=== PATIENT | female | born 1955 | race Asian ===

== ENCOUNTER 2019-09-05 09:54 | Inpatient (IN) | payer MEDICARE, MEDICAID ==
[~2019-09-05] VITALS: Ht 154.9 cm; Wt 108.0 kg
[2019-09-05] MEDS ORDERED: MORPHINE SULFATE 4 MG/ML CPJ (NOT FOR IM USE) IV STA (10:35)
[2019-09-05] MEDS ORDERED: ONDANSETRON HCL 4MG/2ML INJ IV STA (10:35)
[2019-09-05 12:28] LABS: HEMATOCRIT. 32.6 % (36.0-48.0); MEAN CORPUSCULAR HEMOGLOBIN 33.2 pg (28.0-32.0); MEAN CORPUSCULAR VOLUME 98.5 fL (81.0-99.0); MEAN PLATELET VOLUME 7.2 fl (7.4-10.4); PLATELET 319 x1000/uL (130-400); RED BLOOD CELL COUNT 3.31 mill/uL (4.2-5.4); RED CELL DISTRIBUTION WIDTH 16.3 % (11.6-14.6)
[2019-09-05] MEDS ORDERED: HYDROCODONE/ACETAMINOPHEN 5/325MG TABLET PO ONE (12:30)
[2019-09-05 12:31] LABS: CHLORIDE 92 mEq/L (98-107)
[2019-09-05 12:33] LABS: D-DIMER 3.36 mg/L FEU (<0.50); INR 1.1; PROTHROMBIN TIME 12.3 sec (9.6-11.0)
[2019-09-05 12:58] LABS: PLATELET ESTIMATE NORMAL
[2019-09-05] MEDS ORDERED: SODIUM CHLORIDE 0.9% 1,000 ML IV ONE (14:58)
[2019-09-05] MEDS ORDERED: VANCOMYCIN 1 G PREMIX 200 ML IV ONE (15:00)
[2019-09-05] MEDS ORDERED: PIPERACILLIN/TAZ 3.375G PREMIX 50 ML IV ONE (15:00)
[2019-09-05] MEDS ORDERED: CLONIDINE 0.1MG TABLET PO PRN (15:15)
[2019-09-05] MEDS ORDERED: ENOXAPARIN 40MG/0.4ML SYR SUBCUT SCH (15:15)
[2019-09-05] MEDS ORDERED: LORAZEPAM 0.5MG TABLET PO PRN (15:15)
[2019-09-05] MEDS ORDERED: MAGNESIUM/ALUMINUM HYDROXIDE/SIMETHICONE 30ML UDC PO PRN (15:15)
[2019-09-05] MEDS ORDERED: DOCUSATE SODIUM 100MG CAPSULE PO PRN (15:15)
[2019-09-05] MEDS ORDERED: NITROGLYCERIN 0.4MG TABLET SL SL PRN (15:15)
[2019-09-05] MEDS ORDERED: IPRATROPIUM/ALBUTEROL 0.5-3(2.5)MG/3ML NEB NEB PRN (15:15)
[2019-09-05] MEDS ORDERED: ACETAMINOPHEN 325MG TABLET PO PRN (15:15)
[2019-09-05] MEDS ORDERED: DIPHENHYDRAMINE 50MG/ML VIAL IV PRN (15:15)
[2019-09-05] MEDS ORDERED: GUAIFENESIN 200MG/10ML SUGAR FREE UDC PO PRN (15:15)
[2019-09-05 19:00] VITALS: BP 108/74
[2019-09-05 20:00] VITALS: BP 100/64
[2019-09-05] MEDS ORDERED: LOSA1TAB40 MT (20:00)
[2019-09-05] MEDS ORDERED: ASPI-986 MT (20:00)
[2019-09-05] MEDS ORDERED: ENOXAPARIN 30MG/0.3ML SYR SUBCUT SCH (20:00)
[2019-09-05] MEDS ORDERED: ZOLPIDEM TARTRATE 5MG TABLET PO PRN (21:00)
[2019-09-05] MEDS ORDERED: PIPERACILLIN/TAZ 3.375G PREMIX 50 ML IV SCH (21:00)
[2019-09-05] MEDS: PIPERACILLIN/TAZOBACTAM 3.375 G in DEXT 5% WATER 100 ML IV SCH (21:38)
[2019-09-05] MEDS: SEVELAMER CARBONATE 800 MG TABLET PO SCH (21:40)
[2019-09-05] MEDS: METOPROLOL TARTRATE 25MG TABLET PO SCH (21:41)
[2019-09-05] MEDS: FAMOTIDINE 20MG TABLET PO SCH (21:41)
[2019-09-05] MEDS: ASCORBIC ACID 500 MG TABLET PO SCH (21:45)
[2019-09-05] MEDS ORDERED: VANCOMYCIN 750 MG PREMIX 150 ML IV NR (22:00)
[2019-09-06] VITALS: BP 115/66
[2019-09-06 00:04] LABS: CREATINE KINASE 168 IU/L (26-192)
[2019-09-06 00:06] LABS: CREATINE KINASE MB FRACTION 2.8 ng/mL (0.5-3.6)
[2019-09-06 04:00] VITALS: BP 121/71
[2019-09-06] MEDS: TRAMADOL 50MG TABLET PO PRN (05:55)
[2019-09-06] MEDS: SEVELAMER CARBONATE 800 MG TABLET PO SCH ×3 (06:36→17:46)
[2019-09-06 07:56] LABS: CREATINE KINASE 131 IU/L (26-192); CREATINE KINASE MB FRACTION 2.5 ng/mL (0.5-3.6)
[2019-09-06 08:00] VITALS: BP 112/70
[2019-09-06] MEDS: ASCORBIC ACID 500 MG TABLET PO SCH ×2 (08:47→21:21)
[2019-09-06] MEDS: METOPROLOL TARTRATE 25MG TABLET PO SCH ×2 (08:47→21:21)
[2019-09-06] MEDS: PIPERACILLIN/TAZOBACTAM 3.375 G in DEXT 5% WATER 100 ML IV SCH ×2 (08:47→23:35)
[2019-09-06] MEDS: ASPIRIN 325MG EC TABLET PO SCH (08:47)
[2019-09-06 11:24] LABS: CREATINE KINASE 124 IU/L (26-192)
[2019-09-06 12:00] VITALS: BP 119/66
[2019-09-06 16:00] VITALS: BP 119/72
[2019-09-06] MEDS ORDERED: VANCOMYCIN 750 MG PREMIX 150 ML IV NR (18:00)
[2019-09-06 20:00] VITALS: BP 127/78
[2019-09-06] MEDS: ENOXAPARIN 40MG/0.4ML SYR SUBCUT SCH (21:20)
[2019-09-06] MEDS: FAMOTIDINE 20MG TABLET PO SCH (21:20)
[2019-09-07] VITALS (7 sets, daily range): BP systolic 120–144; BP diastolic 71–78
[2019-09-07 07:44] LABS: HEMATOCRIT. 31.3 % (36.0-48.0); HEMOGLOBIN. 10.5 g/dL (12.0-16.0); MEAN CORPUSCULAR HEMOGLOBIN 33.1 pg (28.0-32.0); MEAN CORPUSCULAR VOLUME 98.4 fL (81.0-99.0); MEAN PLATELET VOLUME 7.6 fl (7.4-10.4); PLATELET 311 x1000/uL (130-400); RED BLOOD CELL COUNT 3.18 mill/uL (4.2-5.4); RED CELL DISTRIBUTION WIDTH 16.9 % (11.6-14.6)
[2019-09-07 08:07] LABS: PHOSPHORUS 6.1 mg/dL (2.5-4.9)
[2019-09-07] MEDS: METOPROLOL TARTRATE 25MG TABLET PO SCH ×2 (08:53→21:07)
[2019-09-07] MEDS: SEVELAMER CARBONATE 800 MG TABLET PO SCH ×3 (08:53→18:03)
[2019-09-07] MEDS: ASPIRIN 325MG EC TABLET PO SCH (08:54)
[2019-09-07] MEDS: ASCORBIC ACID 500 MG TABLET PO SCH ×2 (08:55→21:01)
[2019-09-07] MEDS: PIPERACILLIN/TAZOBACTAM 3.375 G in DEXT 5% WATER 100 ML IV SCH (08:55)
[2019-09-07] MEDS: TRAMADOL 50MG TABLET PO PRN ×3 (08:56→23:41)
[2019-09-07 10:22] LABS: PLATELET ESTIMATE NORMAL
[2019-09-07] MEDS: ENOXAPARIN 40MG/0.4ML SYR SUBCUT SCH (21:01)
[2019-09-07] MEDS: FAMOTIDINE 20MG TABLET PO SCH (21:01)
[2019-09-08] VITALS: BP 130/65
[2019-09-08 04:00] VITALS: BP 137/65
[2019-09-08 06:15] LABS: BASOPHILS % 0.7 % (0.0-2.0); EOSINOPHILS % 0.3 % (0.0-5.0); HEMATOCRIT. 29.4 % (36.0-48.0); HEMOGLOBIN. 9.8 g/dL (12.0-16.0); MEAN CORPUSCULAR HEMOGLOBIN 32.9 pg (28.0-32.0); MEAN CORPUSCULAR VOLUME 98.3 fL (81.0-99.0); MEAN PLATELET VOLUME 7.7 fl (7.4-10.4); MONOCYTES % 13.1 % (2.0-8.0); NEUTROPHILS % 73.9 % (40.0-76.0); PLATELET 326 x1000/uL (130-400); RED BLOOD CELL COUNT 2.99 mill/uL (4.2-5.4); RED CELL DISTRIBUTION WIDTH 17.1 % (11.6-14.6)
[2019-09-08 07:06] LABS: PHOSPHORUS 6.2 mg/dL (2.5-4.9)
[2019-09-08 08:00] VITALS: BP 131/81
[2019-09-08] MEDS: SEVELAMER CARBONATE 800 MG TABLET PO SCH ×3 (08:42→18:12)
[2019-09-08] MEDS: METOPROLOL TARTRATE 25MG TABLET PO SCH ×3 (09:00→20:45)
[2019-09-08] MEDS: ASCORBIC ACID 500 MG TABLET PO SCH ×2 (09:31→20:45)
[2019-09-08 11:56] VITALS: BP 110/68
[2019-09-08] MEDS: LORAZEPAM 2MG/ML CPJ IV PRN (12:44)
[2019-09-08] MEDS: MORPHINE SULFATE 2 MG/ML CPJ (NOT FOR IM USE) IV PRN (14:14)
[2019-09-08 16:34] VITALS: BP 148/78
[2019-09-08] MEDS: CEFAZOLIN 2,000 MG in DEXT 5% WATER 100 ML IV SCH (18:29)
[2019-09-08] MEDS: ENOXAPARIN 40MG/0.4ML SYR SUBCUT SCH (20:00)
[2019-09-08 20:44] VITALS: BP 168/82
[2019-09-08] MEDS: QUETIAPINE FUMARATE 50MG TABLET PO SCH (20:44)
[2019-09-08] MEDS: OXCARBAZEPINE 300MG TABLET PO SCH (20:45)
[2019-09-08] MEDS: FAMOTIDINE 20MG TABLET PO SCH (20:45)
[2019-09-08] MEDS ORDERED: QUETIAPINE FUMARATE 50MG TABLET PO SCH (21:00)
[2019-09-09 00:20] VITALS: BP 133/79
[2019-09-09 04:00] VITALS: BP 141/82
[2019-09-09 05:55] LABS: BASOPHILS % 0.5 % (0.0-2.0); EOSINOPHILS % 0.3 % (0.0-5.0); HEMATOCRIT. 30.5 % (36.0-48.0); HEMOGLOBIN. 10.3 g/dL (12.0-16.0); MEAN CORPUSCULAR VOLUME 98.1 fL (81.0-99.0); MEAN PLATELET VOLUME 7.5 fl (7.4-10.4); MONOCYTES % 10.2 % (2.0-8.0); PLATELET 320 x1000/uL (130-400); RED BLOOD CELL COUNT 3.11 mill/uL (4.2-5.4)
[2019-09-09 07:41] LABS: PHOSPHORUS 6.6 mg/dL (2.5-4.9)
[2019-09-09 08:00] VITALS: BP 153/77
[2019-09-09] MEDS: SEVELAMER CARBONATE 800 MG TABLET PO SCH ×3 (08:24→17:23)
[2019-09-09] MEDS: ASPIRIN 325MG EC TABLET PO SCH (08:24)
[2019-09-09] MEDS: ASCORBIC ACID 500 MG TABLET PO SCH ×2 (08:24→21:30)
[2019-09-09] MEDS: METOPROLOL TARTRATE 25MG TABLET PO SCH ×2 (08:25→21:00)
[2019-09-09 12:01] VITALS: BP 155/75
[2019-09-09 15:55] VITALS: BP 175/88
[2019-09-09] MEDS: CEFAZOLIN 2,000 MG in DEXT 5% WATER 100 ML IV SCH (17:23)
[2019-09-09] MEDS: MORPHINE SULFATE 2 MG/ML CPJ (NOT FOR IM USE) IV PRN (18:51)
[2019-09-09] MEDS: ENOXAPARIN 40MG/0.4ML SYR SUBCUT SCH (20:00)
[2019-09-09 20:12] VITALS: BP 145/74
[2019-09-09] MEDS: FAMOTIDINE 20MG TABLET PO SCH (21:30)
[2019-09-09] MEDS: OXCARBAZEPINE 300MG TABLET PO SCH (21:30)
[2019-09-09] MEDS: QUETIAPINE FUMARATE 50MG TABLET PO SCH (21:30)
[2019-09-10 00:08] VITALS: BP 138/77
[2019-09-10 04:00] VITALS: BP 134/68
[2019-09-10 07:28] LABS: HEMATOCRIT. 34.6 % (36.0-48.0); HEMOGLOBIN. 11.6 g/dL (12.0-16.0); MEAN CORPUSCULAR HEMOGLOBIN 32.9 pg (28.0-32.0); MEAN PLATELET VOLUME 7.7 fl (7.4-10.4); PLATELET 341 x1000/uL (130-400); RED BLOOD CELL COUNT 3.53 mill/uL (4.2-5.4); RED CELL DISTRIBUTION WIDTH 16.6 % (11.6-14.6)
[2019-09-10] MEDS: SEVELAMER CARBONATE 800 MG TABLET PO SCH ×3 (07:50→18:53)
[2019-09-10 08:00] VITALS: BP 141/72
[2019-09-10 08:05] LABS: PHOSPHORUS 6.3 mg/dL (2.5-4.9)
[2019-09-10] MEDS: ASCORBIC ACID 500 MG TABLET PO SCH ×2 (09:00→21:38)
[2019-09-10] MEDS: METOPROLOL TARTRATE 25MG TABLET PO SCH ×2 (09:00→21:36)
[2019-09-10] MEDS: ASPIRIN 325MG EC TABLET PO SCH (09:00)
[2019-09-10 09:38] LABS: PLATELET ESTIMATE NORMAL
[2019-09-10] MEDS ORDERED: BACITRACIN 15GM TUBE TOP ONE (10:52)
[2019-09-10] MEDS ORDERED: BACITRACIN 50,000 UNITS/VIAL ONE (10:53)
[2019-09-10] MEDS ORDERED: LIDOCAINE HCL 1% 20ML VIAL (Pyxis) INJ ONE (10:53)
[2019-09-10] MEDS ORDERED: HEPARIN SODIUM 1,000 UNIT/1ML VIAL IV ONE (10:53)
[2019-09-10] MEDS ORDERED: THROMBIN (BOVINE) 5000 UNITS/VIAL TOP ONE (10:53)
[2019-09-10] MEDS ORDERED: BUPIVACAINE HCL/PF 0.5% (5MG/ML) 10ML ONE (10:53)
[2019-09-10] MEDS ORDERED: SODIUM CHLORIDE 0.9% 10ML VIAL ONE (10:54)
[2019-09-10] MEDS ORDERED: FENTANYL CITRATE/PF 50MCG/ML 2ML VIAL ONE (12:46)
[2019-09-10] MEDS ORDERED: PROPOFOL 200MG/20ML VIAL IV ONE ×2 (12:46→13:15)
[2019-09-10] MEDS ORDERED: MIDAZOLAM HCL 2 MG/2 ML VIAL ONE (12:46)
[2019-09-10] MEDS ORDERED: DEXAMETHASONE 4MG/ML 1ML VIAL ONE (13:15)
[2019-09-10] MEDS ORDERED: ONDANSETRON HCL 4MG/2ML INJ ONE (13:15)
[2019-09-10] MEDS ORDERED: ONDANSETRON HCL 4MG/2ML INJ IV PRN (13:45)
[2019-09-10] MEDS ORDERED: HYDROMORPHONE HCL/PF 2MG/ML CPJ IV PRN (13:45)
[2019-09-10] MEDS ORDERED: MEPERIDINE HCL/PF 25MG/ML CPJ IV PRN (13:45)
[2019-09-10] MEDS ORDERED: LABETALOL 5MG/ML SYR 20 MG/4 ML SYRINGE IV PRN (13:45)
[2019-09-10] MEDS ORDERED: HEPARIN SODIUM 1,000 UNIT/1ML VIAL IV NR (14:30)
[2019-09-10 16:00] VITALS: BP 139/88
[2019-09-10] MEDS: CEFAZOLIN 2,000 MG in DEXT 5% WATER 100 ML IV SCH (18:53)
[2019-09-10] MEDS: MORPHINE SULFATE 2 MG/ML CPJ (NOT FOR IM USE) IV PRN (19:01)
[2019-09-10 20:00] VITALS: BP 140/80
[2019-09-10] MEDS: OXCARBAZEPINE 300MG TABLET PO SCH (21:35)
[2019-09-10] MEDS: FAMOTIDINE 20MG TABLET PO SCH (21:35)
[2019-09-10] MEDS: ENOXAPARIN 40MG/0.4ML SYR SUBCUT SCH (21:35)
[2019-09-10] MEDS: QUETIAPINE FUMARATE 50MG TABLET PO SCH (21:36)
[2019-09-11] VITALS: BP 121/66
[2019-09-11] MEDS: LORAZEPAM 2MG/ML CPJ IV PRN (01:54)
[2019-09-11 04:00] VITALS: BP 139/75
[2019-09-11 08:00] VITALS: BP 133/71
[2019-09-11] MEDS: SEVELAMER CARBONATE 800 MG TABLET PO SCH ×3 (08:56→18:11)
[2019-09-11] MEDS: ASPIRIN 325MG EC TABLET PO SCH (08:56)
[2019-09-11] MEDS: ASCORBIC ACID 500 MG TABLET PO SCH ×2 (08:56→21:23)
[2019-09-11] MEDS: METOPROLOL TARTRATE 25MG TABLET PO SCH ×2 (09:00→21:24)
[2019-09-11] MEDS: MORPHINE SULFATE 2 MG/ML CPJ (NOT FOR IM USE) IV PRN ×2 (09:01→14:37)
[2019-09-11 10:17] LABS: BASOPHILS % 0.7 % (0.0-2.0); EOSINOPHILS % 0.1 % (0.0-5.0); HEMOGLOBIN. 10.5 g/dL (12.0-16.0); LYMPHOCYTES % 13.9 % (20.0-50.0); MEAN CORPUSCULAR HEMOGLOBIN 33.2 pg (28.0-32.0); MEAN CORPUSCULAR VOLUME 98.2 fL (81.0-99.0); MEAN PLATELET VOLUME 7.1 fl (7.4-10.4); MONOCYTES % 7.7 % (2.0-8.0); NEUTROPHILS % 77.6 % (40.0-76.0); PLATELET 366 x1000/uL (130-400); RED BLOOD CELL COUNT 3.16 mill/uL (4.2-5.4); RED CELL DISTRIBUTION WIDTH 16.8 % (11.6-14.6)
[2019-09-11 12:00] VITALS: BP 137/60
[2019-09-11 13:13] LABS: PHOSPHORUS 5.1 mg/dL (2.5-4.9)
[2019-09-11 16:00] VITALS: BP 143/59
[2019-09-11] MEDS: CEFAZOLIN 2,000 MG in DEXT 5% WATER 100 ML IV SCH (18:11)
[2019-09-11 20:00] VITALS: BP 159/81
[2019-09-11] MEDS: ENOXAPARIN 40MG/0.4ML SYR SUBCUT SCH (20:06)
[2019-09-11] MEDS: FAMOTIDINE 20MG TABLET PO SCH (21:23)
[2019-09-11] MEDS: OXCARBAZEPINE 300MG TABLET PO SCH (21:24)
[2019-09-11] MEDS: QUETIAPINE FUMARATE 50MG TABLET PO SCH (21:25)
[2019-09-12] VITALS: BP 149/90
[2019-09-12] MEDS: MORPHINE SULFATE 2 MG/ML CPJ (NOT FOR IM USE) IV PRN ×2 (00:24→17:46)
[2019-09-12 04:41] VITALS: BP 161/88
[2019-09-12 08:00] VITALS: BP 127/74
[2019-09-12] MEDS: ASCORBIC ACID 500 MG TABLET PO SCH ×2 (10:19→21:04)
[2019-09-12] MEDS: ASPIRIN 325MG EC TABLET PO SCH (10:20)
[2019-09-12] MEDS: SEVELAMER CARBONATE 800 MG TABLET PO SCH ×3 (10:20→17:36)
[2019-09-12] MEDS: METOPROLOL TARTRATE 25MG TABLET PO SCH ×2 (10:21→21:04)
[2019-09-12 10:31] LABS: BASOPHILS % 0.5 % (0.0-2.0); EOSINOPHILS % 0.2 % (0.0-5.0); HEMATOCRIT. 28.7 % (36.0-48.0); HEMOGLOBIN. 9.7 g/dL (12.0-16.0); LYMPHOCYTES % 8.7 % (20.0-50.0); MEAN CORPUSCULAR VOLUME 97.8 fL (81.0-99.0); MEAN PLATELET VOLUME 7.4 fl (7.4-10.4); MONOCYTES % 6.2 % (2.0-8.0); NEUTROPHILS % 84.4 % (40.0-76.0); PLATELET 377 x1000/uL (130-400); RED BLOOD CELL COUNT 2.94 mill/uL (4.2-5.4); RED CELL DISTRIBUTION WIDTH 16.7 % (11.6-14.6)
[2019-09-12 10:42] LABS: PHOSPHORUS 2.8 mg/dL (2.5-4.9)
[2019-09-12 12:00] VITALS: BP 152/118
[2019-09-12 16:00] VITALS: BP 184/148
[2019-09-12] MEDS: CEFAZOLIN 2,000 MG in DEXT 5% WATER 100 ML IV SCH (17:36)
[2019-09-12 20:00] VITALS: BP 156/81
[2019-09-12] MEDS: QUETIAPINE FUMARATE 50MG TABLET PO SCH (21:04)
[2019-09-12] MEDS: FAMOTIDINE 20MG TABLET PO SCH (21:04)
[2019-09-12] MEDS: OXCARBAZEPINE 300MG TABLET PO SCH (21:04)
[2019-09-12] MEDS: ENOXAPARIN 40MG/0.4ML SYR SUBCUT SCH (21:04)
[2019-09-13] VITALS (17 sets, daily range): BP systolic 135–167; BP diastolic 54–102
[2019-09-13 07:11] LABS: BASOPHILS % 0.5 % (0.0-2.0); EOSINOPHILS % 0.2 % (0.0-5.0); HEMATOCRIT. 29.6 % (36.0-48.0); HEMOGLOBIN. 9.8 g/dL (12.0-16.0); LYMPHOCYTES % 13.8 % (20.0-50.0); MEAN CORPUSCULAR HEMOGLOBIN 32.9 pg (28.0-32.0); MEAN CORPUSCULAR VOLUME 99.2 fL (81.0-99.0); MEAN PLATELET VOLUME 7.7 fl (7.4-10.4); MONOCYTES % 9.8 % (2.0-8.0); NEUTROPHILS % 75.7 % (40.0-76.0); PLATELET 352 x1000/uL (130-400); RED BLOOD CELL COUNT 2.99 mill/uL (4.2-5.4); RED CELL DISTRIBUTION WIDTH 16.7 % (11.6-14.6)
[2019-09-13] MEDS: SEVELAMER CARBONATE 800 MG TABLET PO SCH ×3 (07:50→17:46)
[2019-09-13 08:00] LABS: PHOSPHORUS 5.4 mg/dL (2.5-4.9)
[2019-09-13] MEDS: METOPROLOL TARTRATE 25MG TABLET PO SCH (08:26)
[2019-09-13] MEDS: ASPIRIN 325MG EC TABLET PO SCH (08:27)
[2019-09-13] MEDS: ASCORBIC ACID 500 MG TABLET PO SCH (08:27)
[2019-09-13] MEDS ORDERED: SODIUM BICARBONATE 4% (2.4MEQ) 5ML VIAL IV ONE (09:04)
[2019-09-13] MEDS ORDERED: LIDOCAINE HCL 1% 20ML VIAL (Pyxis) INJ ONE ×2 (09:05→09:39)
[2019-09-13] MEDS ORDERED: FENTANYL CITRATE/PF 50MCG/ML 2ML VIAL ONE (09:07)
[2019-09-13] MEDS ORDERED: FENTANYL CITRATE/PF 50MCG/ML 2ML VIAL IV ONE (09:45)
[2019-09-13] MEDS: CEFAZOLIN 2,000 MG in DEXT 5% WATER 100 ML IV SCH (17:45)
[2019-09-13] MEDS ORDERED: DESMOPRESSIN ACETATE IV NR (18:00)
[2019-09-13] MEDS ORDERED: SODIUM CHLORIDE 0.9% IV NR (18:00)
[2019-09-13] MEDS: QUETIAPINE FUMARATE 50MG TABLET PO SCH (20:34)
[2019-09-13] MEDS: OXCARBAZEPINE 300MG TABLET PO SCH (20:34)
[2019-09-13] MEDS: FAMOTIDINE 20MG TABLET PO SCH (20:34)
[2019-09-14 00:10] VITALS: BP 136/85
[2019-09-14] MEDS: MORPHINE SULFATE 2 MG/ML CPJ (NOT FOR IM USE) IV PRN ×3 (01:04→20:42)
[2019-09-14 04:00] VITALS: BP 130/90
[2019-09-14 06:50] LABS: INR 1.8; PARTIAL THROMBOPLASTIN TIME 42.2 sec (23.4-31.0); PROTHROMBIN TIME 19.4 sec (9.6-11.0)
[2019-09-14 06:56] LABS: PHOSPHORUS 5.7 mg/dL (2.5-4.9)
[2019-09-14 06:59] LABS: BASOPHILS % 0.9 % (0.0-2.0); EOSINOPHILS % 0.3 % (0.0-5.0); HEMATOCRIT. 25.6 % (36.0-48.0); HEMOGLOBIN. 8.6 g/dL (12.0-16.0); LYMPHOCYTES % 12.8 % (20.0-50.0); MEAN CORPUSCULAR VOLUME 97.8 fL (81.0-99.0); MEAN PLATELET VOLUME 7.9 fl (7.4-10.4); MONOCYTES % 8.6 % (2.0-8.0); NEUTROPHILS % 77.4 % (40.0-76.0); PLATELET 310 x1000/uL (130-400); RED BLOOD CELL COUNT 2.62 mill/uL (4.2-5.4); RED CELL DISTRIBUTION WIDTH 16.3 % (11.6-14.6)
[2019-09-14] MEDS: SEVELAMER CARBONATE 800 MG TABLET PO SCH ×4 (07:56→18:20)
[2019-09-14] MEDS: ASCORBIC ACID 500 MG TABLET PO SCH (07:56)
[2019-09-14 08:23] VITALS: BP 141/77
[2019-09-14] MEDS ORDERED: PHYTONADIONE 10MG/ML AMP SUBCUT NR (11:08)
[2019-09-14 11:56] VITALS: BP 131/61
[2019-09-14] MEDS: ONDANSETRON HCL 4MG/2ML INJ IV PRN ×2 (13:35→20:42)
[2019-09-14 16:07] VITALS: BP 147/85
[2019-09-14] MEDS: CEFAZOLIN 2,000 MG in DEXT 5% WATER 100 ML IV SCH (18:20)
[2019-09-14 20:00] VITALS: BP 148/61
[2019-09-14] MEDS: QUETIAPINE FUMARATE 50MG TABLET PO SCH (20:18)
[2019-09-14] MEDS: FAMOTIDINE 20MG TABLET PO SCH (20:18)
[2019-09-14] MEDS: OXCARBAZEPINE 300MG TABLET PO SCH (20:18)
[2019-09-14] MEDS ORDERED: EPOETIN ALFA 4000UNITS/ML VIAL SUBCUT SCH (21:00)
[2019-09-15] VITALS: BP 132/70
[2019-09-15] MEDS: MORPHINE SULFATE 2 MG/ML CPJ (NOT FOR IM USE) IV PRN ×2 (01:01→08:09)
[2019-09-15 04:00] VITALS: BP 135/62
[2019-09-15 07:32] LABS: BASOPHILS % 0.4 % (0.0-2.0); EOSINOPHILS % 0.1 % (0.0-5.0); HEMATOCRIT. 23.1 % (36.0-48.0); HEMOGLOBIN. 7.8 g/dL (12.0-16.0); LYMPHOCYTES % 13.9 % (20.0-50.0); MEAN CORPUSCULAR HEMOGLOBIN 33.1 pg (28.0-32.0); MEAN PLATELET VOLUME 7.7 fl (7.4-10.4); MONOCYTES % 8.1 % (2.0-8.0); NEUTROPHILS % 77.5 % (40.0-76.0); PLATELET 310 x1000/uL (130-400); RED BLOOD CELL COUNT 2.36 mill/uL (4.2-5.4); RED CELL DISTRIBUTION WIDTH 16.6 % (11.6-14.6)
[2019-09-15 08:00] VITALS: BP 148/83
[2019-09-15] MEDS: SEVELAMER CARBONATE 800 MG TABLET PO SCH ×2 (08:08→12:02)
[2019-09-15] MEDS: ASCORBIC ACID 500 MG TABLET PO SCH (08:08)
[2019-09-15 08:28] LABS: PHOSPHORUS 5.6 mg/dL (2.5-4.9)
[2019-09-15] MEDS: ONDANSETRON HCL 4MG/2ML INJ IV PRN (11:34)
[2019-09-15 11:42] VITALS: BP 148/83
[2019-09-15] MEDS ORDERED: CEFAZOLIN 2,000 MG in DEXT 5% WATER 100 ML IV NR (11:45)
== END 2019-09-15 13:40 | disposition home or self-care (01) | DRG 252 ==
LOC: EDSEX 09:54 → ER 10:21 → 6WST 14:59 → EDBEDREQ 15:06 → EDBEDREQTM 15:06 → SUPCPDRO 15:13 → ENRESERV 16:46
PROVIDERS: ADMIT Internal Medicine; ATTEND Internal Medicine
PROC: 5A1D70Z Performance of Urinary Filtration, Intermittent, Less than 6 Hours Per Day (ICD-10-PCS; 2019-09-06)
PROC: 5A1D70Z Performance of Urinary Filtration, Intermittent, Less than 6 Hours Per Day (ICD-10-PCS; 2019-09-08)
PROC: 5A1D70Z Performance of Urinary Filtration, Intermittent, Less than 6 Hours Per Day (ICD-10-PCS; 2019-09-09)
PROC: 02HV33Z Insertion of Infusion Device into Superior Vena Cava, Percutaneous Approach (ICD-10-PCS; 2019-09-09)
PROC: B548ZZA Ultrasonography of Superior Vena Cava, Guidance (ICD-10-PCS; 2019-09-09)
PROC: B5181ZA Fluoroscopy of Superior Vena Cava using Low Osmolar Contrast, Guidance (ICD-10-PCS; 2019-09-09)
PROC: 05PY0JZ Removal of Synthetic Substitute from Upper Vein, Open Approach (ICD-10-PCS; 2019-09-10)
PROC: 03PY0JZ Removal of Synthetic Substitute from Upper Artery, Open Approach (ICD-10-PCS; 2019-09-10)
PROC: 5A1D70Z Performance of Urinary Filtration, Intermittent, Less than 6 Hours Per Day (ICD-10-PCS; 2019-09-10)
PROC: 5A1D70Z Performance of Urinary Filtration, Intermittent, Less than 6 Hours Per Day (ICD-10-PCS; 2019-09-12)
PROC: 0JH63XZ Insertion of Tunneled Vascular Access Device into Chest Subcutaneous Tissue and Fascia, Percutaneous Approach (ICD-10-PCS; 2019-09-13)
PROC: 02HV33Z Insertion of Infusion Device into Superior Vena Cava, Percutaneous Approach (ICD-10-PCS; 2019-09-13)
PROC: B5181ZA Fluoroscopy of Superior Vena Cava using Low Osmolar Contrast, Guidance (ICD-10-PCS; 2019-09-13)
PROC: 5A1D70Z Performance of Urinary Filtration, Intermittent, Less than 6 Hours Per Day (ICD-10-PCS; principal; 2019-09-14)
DX: T82.7XXA Infection and inflammatory reaction due to other cardiac and vascular devices, implants and grafts, initial encounter (principal); A41.01 Sepsis due to Methicillin susceptible Staphylococcus aureus; J96.91 Respiratory failure, unspecified with hypoxia; N18.6 End stage renal disease; E44.0 Moderate protein-calorie malnutrition; E87.1 Hypo-osmolality and hyponatremia; I13.2 Hypertensive heart and chronic kidney disease with heart failure and with stage 5 chronic kidney disease, or end stage renal disease; N25.81 Secondary hyperparathyroidism of renal origin; I50.30 Unspecified diastolic (congestive) heart failure; Z68.42 Body mass index [BMI] 45.0-49.9, adult; D63.8 Anemia in other chronic diseases classified elsewhere; F31.9 Bipolar disorder, unspecified; Y83.2 Surgical operation with anastomosis, bypass or graft as the cause of abnormal reaction of the patient, or of later complication, without mention of misadventure at the time of the procedure; E66.9 Obesity, unspecified; Z99.2 Dependence on renal dialysis; Z82.49 Family history of ischemic heart disease and other diseases of the circulatory system; Y92.89 Other specified places as the place of occurrence of the external cause
CPT/HCPCS: 36415; 36558; 36589; 71045; 72128; 72148; 72170; 73080; 73200; 77001; 80048; 80053; 80061; 80202; 82085; 82550; 82553; 83036; 83605; 83735; 84100; 84145; 84484; 84550; 85025; 85379; 85651; 86140; 87070; 87075; 87077; 88304; 93005; 93306; 93971; 94640; 97162; 99152; 99153; 99291; C1750; C1752; C1769; J0690; J0885; J1100; J1642; J1644; J1650; J2060; J2250; J2270; J2405; J2543; J2597; J2704; J3010; J3370; J3430; J3490; J7030; J7060; G0500